=== PATIENT | female | born 1945 | race Caucasian/White ===

== ENCOUNTER → 2021-01-03 11:22 | Outpatient (BNVA) | payer MEDICARE, SELFPAY | PROVIDERS: Visit Provider Surgery | DX: Z20.822 Contact with and (suspected) exposure to COVID-19 (principal) | CPT/HCPCS: 87635 ==

== ENCOUNTER 2021-01-07 08:24 | Day surgery (SDC) | payer MEDICARE, SELFPAY ==
[2021-01-05 15:04] VITALS: BMI 26.4
--- NOTE | 2021-01-07 08:57 | ANES.PREANE2 ---
Pre-Anesthetic Assessment Pre-Anesthetic Assessment: Height/Weight: Height 1.6 m Weight 67.585 kg Proposed Procedure: Operation Date: 01/07/21 10:00 Proposed Procedures p Colonoscopy 89984 Z12.11(Not Applicable) - Joseph Kang MD Was Beta Delisa taken within 24 hours: N/A Was Clonidine taken within 24 hours: N/A Social: Social History: No alcohol and No tobacco Exam: Pre-Anes Outpt Exam: alert, oriented x 3, clear to auscultation bilaterally and regular rate & rhythm Airway: Submandibular: WNL Cervical ROM: WNL MP: 2 Dentition: Full CV/HEM: CV/HEM: HTN GI: GI: GERD Metabolic: Metabolic: Hyperlipidemia and Thyroid Neuropsych: Neuropsych: Anxiety and Depression Anesthetic Plan: ASA status: 2 Anesthesia: MAC Risk of > 500 ml blood loss (7ml/kg in children): No PFSH Anesthesia PFSH: Medical History (Updated 10/22/20 @ 11:03 by Joseph Kang MD) Anxiety Depression GERD (gastroesophageal reflux disease) Hyperlipidemia Hypertension Hypothyroidism Surgical History (Updated 10/22/20 @ 11:03 by Joseph Kang MD) History of colonoscopy 2019 History of left knee replacement Hx of ankle fusion right ankle Social History Smoking and tobacco status: never smoked Alcohol intake: never Data Anesthesia Cardiac Studies: No Data to Display
[2021-01-07 09:23] VITALS: BP 114/79; PULSE 78; RESP 20; TEMP 36.6; O2SAT 95
[2021-01-07] MEDS: sodium chloride 0.9% 1,000 ML 30 ML IV (09:34)
--- NOTE | 2021-01-07 11:11 | W.PM.OPSFHP ---
Same Day Surgery H&P Indication for Procedure/HPI DATE OF PROCEDURE: January 07, 2021 CHIEF COMPLAINT/INDICATIONFOR SURGICAL PROCEDURE: colonoscopy PREOP DIAGNOSIS: diagnostic PLANNED PROCEDRUE: Operation Date: 01/07/21 10:00 Proposed Procedures p Colonoscopy 91562 Z12.11(Not Applicable) - Joseph Kang MD Medications/Allergies* Home Medications Medication Instructions Recorded Confirmed Type duloxetine 60 mg capsule,delayed 60 mg PO DAILY 05/02/19 01/07/21 History release sprinkle fenofibrate micronized 134 mg 134 mg PO DAILY 05/02/19 01/07/21 History capsule lisinopril 20 1 tab PO DAILY 05/02/19 01/07/21 History mg-hydrochlorothiazide 12.5 mg tablet pantoprazole 40 mg tablet,delayed 40 mg PO DAILY 05/02/19 01/07/21 History release trazodone 50 mg tablet 50 mg PO DAILY 05/02/19 01/07/21 History aspirin 81 mg tablet,delayed 81 mg PO DAILY 10/22/20 01/07/21 History release azelaic acid 15 % topical gel 1 applic TOPICAL BID 10/22/20 01/07/21 History cetirizine 10 mg capsule 10 mg PO DAILY PRN 10/22/20 01/07/21 History cyanocobalamin (vitamin B-12) 1,000 mcg PO DAILY 10/22/20 01/07/21 History 1,000 mcg capsule fluocinonide 0.05 % topical cream 1 applic TOPICAL BID 10/22/20 01/07/21 History levothyroxine 50 mcg capsule 50 mcg PO DAILY 10/22/20 01/07/21 History polyethylene glycol 3350 17 17 g PO DAILY PRN 10/22/20 01/07/21 History gram/dose oral powder simvastatin 40 mg tablet 40 mg PO DAILY 10/22/20 01/07/21 History Allergies/Adverse Reactions Allergy/AdvReac Type Severity Reaction Status Date / Time No Known Allergies Allergy Verified 01/07/21 09:16 Current Medications: Generic Name Dose Route Start Last Admin Trade Name Freq PRN Reason Stop Dose Admin Sodium Chloride 1,000 mls @ 30 mls/hr 01/07/21 09:15 01/07/21 09:34 Sodium Chloride 0.9% IV 01/08/21 09:14 30 mls/hr .Q24H GUERO Administration Pertinent History/Comorbid Conditions* Medical History (Updated 10/22/20 @ 11:03 by Joseph Kang MD) Anxiety Depression GERD (gastroesophageal reflux disease) Hyperlipidemia Hypertension Hypothyroidism Surgical History (Updated 10/22/20 @ 11:03 by Joseph Kang MD) History of colonoscopy 2019 History of left knee replacement Hx of ankle fusion right ankle Social History Smoking and tobacco status: never smoked Alcohol intake: never Pertinent Exam Findings alert, oriented x 3 and regular rate & rhythm Recommendations Surgery/Procedure today Coding Level of Care Code Acute [facility]ist for [facility]
[2021-01-07 11:42] VITALS: BP 91/60; PULSE 97; RESP 16; TEMP 36.1; O2SAT 95
[2021-01-07 11:56] VITALS: BP 94/67; PULSE 93; RESP 16; O2SAT 95
--- NOTE | 2021-01-07 13:54 | ANE.PACU2 ---
Inpatient post-anesthesia follow up: Airway intact: Yes Vital signs: Temperature 97 F Pulse Rate 93 Respiratory Rate 16 Blood Pressure 94/67 Pulse Oximetry 95 Oxygen Delivery Me thod Room Air Oxygen Flow Rate Fraction of Inspir ed Oxygen Hydration adequate: Yes Nausea and vomiting: No Pain level: 1 Mental status: Baseline
== END 2021-01-07 12:20 | disposition home or self-care (01) ==
PROVIDERS: PCP Family Medicine; Visit Provider Surgery
PROC: 0DJD8ZZ Inspection of Lower Intestinal Tract, Via Natural or Artificial Opening Endoscopic (ICD-10-PCS; CPT 45378; principal; 2021-01-07 10:00)
DX: Z12.11 Encounter for screening for malignant neoplasm of colon (principal); K57.30 Diverticulosis of large intestine without perforation or abscess without bleeding; K21.9 Gastro-esophageal reflux disease without esophagitis; I10 Essential (primary) hypertension; E03.9 Hypothyroidism, unspecified; Z79.82 Long term (current) use of aspirin
CPT/HCPCS: 96360; 96361; G0121; J2704; J7030

== ENCOUNTER → 2023-02-02 08:57 | Outpatient (BNVA) | payer MEDICARE, SELFPAY | PROVIDERS: PCP Family Medicine; Visit Provider Podiatrist Foot & Ankle Surgery | DX: L90.9 Atrophic disorder of skin, unspecified; M21.70 Unequal limb length (acquired), unspecified site | CPT/HCPCS: 99203 ==

== ENCOUNTER → 2023-02-23 09:32 | Outpatient (BNVA) | payer MEDICARE, SELFPAY | PROVIDERS: PCP Family Medicine; Visit Provider Podiatrist Foot & Ankle Surgery | DX: L90.9 Atrophic disorder of skin, unspecified (principal); M21.70 Unequal limb length (acquired), unspecified site; M79.671 Pain in right foot | CPT/HCPCS: 99213 ==

== ENCOUNTER 2023-04-16 15:35 | Outpatient (CLI) | payer MEDICARE, SELFPAY | END 2023-04-16 15:36 | disposition home or self-care (01) | LOC: SPT 15:36 | PROVIDERS: PCP Family Medicine; Visit Provider Podiatrist Foot & Ankle Surgery | DX: Z46.89 Encounter for fitting and adjustment of other specified devices (principal); M21.70 Unequal limb length (acquired), unspecified site; L90.9 Atrophic disorder of skin, unspecified; M79.671 Pain in right foot; M21.41 Flat foot [pes planus] (acquired), right foot; M21.42 Flat foot [pes planus] (acquired), left foot | CPT/HCPCS: 99213; L3030 ==